=== PATIENT | female | born 1935 | race Hispanic/Latino ===

== ENCOUNTER 2017-11-20 15:00 | Inpatient (IN) | payer MEDICARE ==
[~2017-11-20] VITALS: Ht 158.8 cm; Wt 74.1 kg
[~2017-11-20 15:00] MED LIST: AMLO1CAP12 PO; LEVO50TA11 PO; LINA1TAB PO; PREM625 PO
[2017-11-20 15:42] VITALS: BP 150/79
[2017-11-20] MEDS ORDERED: ASPI-1181 PO (15:48)
[2017-11-20] MEDS ORDERED: HYDR12.530 PO (15:48)
[2017-11-20 15:49] LABS: BASOPHILS % (AUTO) 0.4 % (0.0-5.0); EOSINOPHILS % (AUTO) 2.1 % (0.0-8.0); HEMATOCRIT 41.2 % (36-48); LYMPHOCYTES % (AUTO) 27.6 % (21.0-51.0); MEAN CORPUSCULAR HEMOGLOBIN 30.7 pg (27.0-33.0); MEAN CORPUSCULAR HGB CONC 34.6 g/dL (32.0-36.0); MEAN CORPUSCULAR VOLUME 88.6 fL (79-99); NEUTROPHILS % (AUTO) 62.9 % (40.0-77.0); PLATELET COUNT (AUTO) 196 K/uL (130-400); RED BLOOD CELL COUNT(AUTO) 4.65 MIL/uL (4.00-5.50); RED CELL DISTRIBUTION WIDTH 14.3 % (11.0-15.5); WHITE BLOOD COUNT (AUTO) 8.3 K/uL (4.8-10.8)
[2017-11-20 15:49] LABS: APPEARANCE,URINE Clear (CLEAR); BILIRUBIN,URINE Negative (NEGATIVE); COLOR,URINE Yellow (YELLOW); GLUCOSE, URINE (UA) Negative (NEGATIVE); KETONES,URINE Negative (NEGATIVE); LEUKOCYTE ESTERASE ,URINE Negative (NEGATIVE); NITRATE,URINE Negative (NEGATIVE); OCCULT BLOOD,URINE Negative (NEGATIVE); PROTEIN,URINE Negative (NEGATIVE); UROBILINOGEN,URINE 0.2 mg/dL (0.2-1.0)
[2017-11-20] MEDS ORDERED: ATOR20TA65 PO (15:49)
[2017-11-20] MEDS ORDERED: GLIM1TAB2 PO (15:49)
[2017-11-20 16:07] LABS: INR 0.95 (0.85-1.15); PARTIAL THROMBOPLASTIN TIME 24.9 SEC (26.3-35.5)
[2017-11-20 16:08] LABS: CREATININE 1.2 mg/dL (0.5-1.5); POTASSIUM 4.2 mmol/L (3.5-5.1)
[2017-11-21] VITALS (21 sets, daily range): BP systolic 104–159; BP diastolic 52–79
[2017-11-21] MEDS ORDERED: SODIUM CHLORIDE 0.9% 1000ML 1,000 ML IV ONE (08:10)
[2017-11-21] MEDS ORDERED: CEFAZOLIN SODIUM 1 GM VIAL ONE (08:10)
[2017-11-21] MEDS ORDERED: TRANEXAMIC ACID 1000MG/10ML IV ONE (08:24)
[2017-11-21] MEDS ORDERED: CLINDAMYCIN PHOSPHATE 150 MG/ML 6ML VIAL ONE ×2 (08:24→09:27)
[2017-11-21] MEDS ORDERED: KETOROLAC TROMETHAMINE 15MG/ML ONE (08:26)
[2017-11-21] MEDS ORDERED: ACETAMINOPHEN EXTRA STRENGTH 500 MG TABLET ONE ×2 (08:26→20:34)
[2017-11-21] MEDS ORDERED: CELECOXIB 200 MG CAP ONE (08:26)
[2017-11-21] MEDS ORDERED: OXYCODONE HCL 10 MG TAB.SR.12H PO ONE (08:27)
[2017-11-21] MEDS: CLINDAMYCIN 900 MG/D5% WATER 50 ML IV SCH ×2 (08:30→11:40)
[2017-11-21] MEDS ORDERED: BUPIVACAINE/EPI/PF 0.25% 30ML VIAL IJ ONE (09:27)
[2017-11-21] MEDS ORDERED: DEXAMETHASONE SOD PHOSPHATE 10MG/ML 1ML VIAL ONE (11:09)
[2017-11-21] MEDS ORDERED: GLYCOPYRROLATE 0.2 MG/ML 5 ML VIAL ONE (11:09)
[2017-11-21] MEDS ORDERED: ONDANSETRON HCL 4 MG/2 ML VIAL ONE (11:09)
[2017-11-21] MEDS ORDERED: LIDOCAINE PF 2% 5ML ABBOJECT ONE (11:09)
[2017-11-21] MEDS ORDERED: PROPOFOL 10 MG/ML 20ML VIAL IV ONE (11:10)
[2017-11-21] MEDS ORDERED: MIDAZOLAM HCL 1 MG/ML 2ML VIAL ONE (11:10)
[2017-11-21] MEDS ORDERED: FENTANYL CITRATE PF 50 MCG/1 ML 2ML VIAL ONE ×2 (11:10→11:53)
[2017-11-21] MEDS ORDERED: EPHEDRINE SULFATE 50 MG/ML AMPULE ONE (11:40)
[2017-11-21] MEDS: SODIUM CHLORIDE 0.9% 1000ML 1,000 ML IV SCH ×2 (13:27→23:30)
[2017-11-21] MEDS ORDERED: FERROUS FUMARATE 324 MG TABLET PO PRN (13:30)
[2017-11-21] MEDS ORDERED: CALCIUM CARBONATE 500 MG TABLET PO PRN (13:30)
[2017-11-21] MEDS ORDERED: POTASSIUM CHLORIDE 20MEQ/100ML 100 ML IV PRN (13:30)
[2017-11-21] MEDS ORDERED: TRAMADOL HCL 50 MG TABLET PO PRN (13:30)
[2017-11-21] MEDS ORDERED: DiphenhydrAMINE HCL 50 MG/ML VIAL IVP PRN (13:30)
[2017-11-21] MEDS ORDERED: POTASSIUM CHLORIDE 20 MEQ ERTAB PO PRN (13:30)
[2017-11-21] MEDS ORDERED: OXYCODONE HCL 5 MG TAB PO PRN (13:30)
[2017-11-21] MEDS ORDERED: LIDOCAINE HCL-MPF 1% 2ML VIAL IVP PRN (13:30)
[2017-11-21] MEDS ORDERED: POTASSIUM CHLORIDE 10% ELIXIR 20 MEQ/15 ML UDCUP PO PRN (13:30)
[2017-11-21] MEDS ORDERED: ONDANSETRON HCL 4 MG/2 ML VIAL IVP PRN (13:30)
[2017-11-21] MEDS ORDERED: TEMAZEPAM 15 MG CAPSULE PO PRN (13:30)
[2017-11-21] MEDS ORDERED: ACETAMINOPHEN 325 MG TAB PO PRN (13:30)
[2017-11-21] MEDS ORDERED: MEPERIDINE-PF 25 MG/ML SYG ONE (14:19)
[2017-11-21] MEDS ORDERED: MORPHINE SULFATE 4 MG/1ML SYG ONE (14:30)
[2017-11-21] MEDS ORDERED: ONDANSETRON HCL MDV 20ML 2 MG/ML VIAL ONE (15:35)
[2017-11-21] MEDS: KETOROLAC TROMETHAMINE 15MG/ML IV PRN (15:36)
[2017-11-21] MEDS: INSULIN HUMULIN R 100 UNIT/ML 3ML SQ SCH ×2 (17:36→21:50)
[2017-11-21] MEDS ORDERED: CLINDAMYCIN 900 MG/D5% WATER 50 ML IVPB SCH (18:30)
[2017-11-21] MEDS: CLINDAMYCIN 900 MG/D5% WATER 50 ML IVPB SCH (20:27)
[2017-11-21] MEDS: ASPIRIN 325 MG TABLET PO SCH (20:27)
[2017-11-21] MEDS: CELECOXIB 200 MG CAP PO SCH (20:28)
[2017-11-21] MEDS: PREGABALIN 25 MG CAP PO SCH (20:29)
[2017-11-21] MEDS: ATORVASTATIN CALCIUM 20 MG TABLET PO SCH (20:30)
[2017-11-21] MEDS: HYDROCHLOROTHIAZIDE 25 MG TABLET PO SCH (20:30)
[2017-11-21] MEDS: FAMOTIDINE 20MG TAB 20 MG TAB PO SCH (20:30)
[2017-11-21] MEDS: ACETAMINOPHEN 325 MG TAB PO SCH (20:39)
[2017-11-22] VITALS: BP 129/70
[2017-11-22 04:00] VITALS: BP 129/61
[2017-11-22] MEDS: CLINDAMYCIN 900 MG/D5% WATER 50 ML IVPB SCH (04:11)
[2017-11-22] MEDS ORDERED: ACETAMINOPHEN EXTRA STRENGTH 500 MG TABLET ONE (04:11)
[2017-11-22] MEDS: ACETAMINOPHEN 325 MG TAB PO SCH (04:44)
[2017-11-22 05:55] LABS: HEMATOCRIT 33.9 % (36-48); MEAN CORPUSCULAR HEMOGLOBIN 30.8 pg (27.0-33.0); MEAN CORPUSCULAR HGB CONC 35.4 g/dL (32.0-36.0); MEAN CORPUSCULAR VOLUME 86.9 fL (79-99); PLATELET COUNT (AUTO) 157 K/uL (130-400); RED CELL DISTRIBUTION WIDTH 13.8 % (11.0-15.5); WHITE BLOOD COUNT (AUTO) 11.5 K/uL (4.8-10.8)
[2017-11-22] MEDS: INSULIN HUMULIN R 100 UNIT/ML 3ML SQ SCH ×4 (06:03→20:58)
[2017-11-22] MEDS ORDERED: LEVOTHYROXINE 50 MCG TABLET ONE (06:04)
[2017-11-22] MEDS: LEVOTHYROXINE 50 MCG TABLET PO SCH (06:06)
[2017-11-22 06:17] LABS: CREATININE 0.9 mg/dL (0.5-1.5); POTASSIUM 3.9 mmol/L (3.5-5.1)
[2017-11-22] MEDS: JENTADUETO PO SCH ×2 (08:00→17:00)
[2017-11-22 08:03] VITALS: BP 131/66
[2017-11-22] MEDS: ASPIRIN 325 MG TABLET PO SCH ×2 (08:15→19:42)
[2017-11-22] MEDS: OXYCODONE HCL 5 MG TAB PO PRN ×2 (08:15→11:31)
[2017-11-22] MEDS: GLIMEPIRIDE 2 MG TABLET PO SCH (08:15)
[2017-11-22] MEDS: CELECOXIB 200 MG CAP PO SCH ×2 (08:15→19:43)
[2017-11-22] MEDS: POLYETHYLENE GLYCOL 3350 17 GM POWD.PACK PO SCH (08:16)
[2017-11-22] MEDS: SODIUM CHLORIDE 0.9% 1000ML 1,000 ML IV SCH (09:27)
[2017-11-22] MEDS: AMLODIPINE-BENAZEPRIL 5-20 MG PO SCH (11:31)
[2017-11-22] MEDS: PREGABALIN 25 MG CAP PO SCH ×2 (11:32→19:52)
[2017-11-22 11:39] VITALS: BP 127/66
[2017-11-22] MEDS: KETOROLAC TROMETHAMINE 15MG/ML IV PRN (13:24)
[2017-11-22] MEDS: ACETAMINOPHEN EXTRA STRENGTH 500 MG TABLET PO SCH ×2 (15:57→21:25)
[2017-11-22 16:16] VITALS: BP 122/64
[2017-11-22] MEDS: HYDROCHLOROTHIAZIDE 25 MG TABLET PO SCH (19:42)
[2017-11-22] MEDS: ATORVASTATIN CALCIUM 20 MG TABLET PO SCH (19:43)
[2017-11-22] MEDS: FAMOTIDINE 20MG TAB 20 MG TAB PO SCH (19:47)
[2017-11-22 20:00] VITALS: BP 146/74
[2017-11-23] VITALS (7 sets, daily range): BP systolic 130–148; BP diastolic 64–74
[2017-11-23] MEDS: LEVOTHYROXINE 50 MCG TABLET PO SCH (05:29)
[2017-11-23] MEDS: ACETAMINOPHEN EXTRA STRENGTH 500 MG TABLET PO SCH ×3 (05:29→22:14)
[2017-11-23] MEDS: INSULIN HUMULIN R 100 UNIT/ML 3ML SQ SCH ×3 (05:30→21:00)
[2017-11-23] MEDS: AMLODIPINE-BENAZEPRIL 5-20 MG PO SCH (08:58)
[2017-11-23] MEDS: POLYETHYLENE GLYCOL 3350 17 GM POWD.PACK PO SCH (08:58)
[2017-11-23] MEDS: ASPIRIN 325 MG TABLET PO SCH ×2 (08:58→20:13)
[2017-11-23] MEDS: PREGABALIN 25 MG CAP PO SCH ×2 (08:58→20:13)
[2017-11-23] MEDS: GLIMEPIRIDE 2 MG TABLET PO SCH (08:59)
[2017-11-23] MEDS: CELECOXIB 200 MG CAP PO SCH ×2 (08:59→20:13)
[2017-11-23] MEDS ORDERED: ESTROGENS,CONJUGATED 0.625 MG TAB PO SCH (09:00)
[2017-11-23] MEDS: JENTADUETO PO SCH ×2 (09:16→17:00)
[2017-11-23] MEDS ORDERED: ASPI-1012 PO (15:58)
[2017-11-23] MEDS ORDERED: HYDR-309 PO (15:58)
[2017-11-23] MEDS: ATORVASTATIN CALCIUM 20 MG TABLET PO SCH (20:13)
[2017-11-23] MEDS: FAMOTIDINE 20MG TAB 20 MG TAB PO SCH (20:13)
[2017-11-23] MEDS: HYDROCHLOROTHIAZIDE 25 MG TABLET PO SCH (21:24)
[2017-11-24 04:33] VITALS: BP 129/64
[2017-11-24] MEDS: LEVOTHYROXINE 50 MCG TABLET PO SCH ×2 (05:25→08:39)
[2017-11-24] MEDS: ACETAMINOPHEN EXTRA STRENGTH 500 MG TABLET PO SCH (05:27)
[2017-11-24] MEDS: INSULIN HUMULIN R 100 UNIT/ML 3ML SQ SCH (06:03)
[2017-11-24 07:42] VITALS: BP 117/73
[2017-11-24] MEDS: CELECOXIB 200 MG CAP PO SCH (08:38)
[2017-11-24] MEDS: POLYETHYLENE GLYCOL 3350 17 GM POWD.PACK PO SCH (08:38)
[2017-11-24] MEDS: AMLODIPINE-BENAZEPRIL 5-20 MG PO SCH (08:38)
[2017-11-24] MEDS: ASPIRIN 325 MG TABLET PO SCH (08:38)
[2017-11-24] MEDS: PREGABALIN 25 MG CAP PO SCH (08:38)
[2017-11-24] MEDS: JENTADUETO PO SCH (08:39)
[2017-11-24] MEDS: GLIMEPIRIDE 2 MG TABLET PO SCH (08:39)
[2017-11-24 11:19] VITALS: BP 166/76
[2017-11-24] MEDS ORDERED: BISACODYL 10 MG SUPP.RECT RC PRN (13:30)
== END 2017-11-24 11:27 | DRG 470 ==
LOC: DAHIP 11-21 07:22 → EDSTATUS 11-21 15:00 → 4AH 11-21 15:01
PROVIDERS: ADMIT Orthopaedic Surgery; ATTEND Orthopaedic Surgery
PROC: 0SRD0J9 Replacement of Left Knee Joint with Synthetic Substitute, Cemented, Open Approach (ICD-10-PCS; principal; 2017-11-21 11:54)
DX: M17.12 Unilateral primary osteoarthritis, left knee (principal); E11.9 Type 2 diabetes mellitus without complications; I10 Essential (primary) hypertension; E78.00 Pure hypercholesterolemia, unspecified; G89.29 Other chronic pain; M19.90 Unspecified osteoarthritis, unspecified site; Z90.710 Acquired absence of both cervix and uterus; Z98.49 Cataract extraction status, unspecified eye; Z88.0 Allergy status to penicillin; Z88.8 Allergy status to other drugs, medicaments and biological substances; Z91.041 Radiographic dye allergy status; Z83.3 Family history of diabetes mellitus
CPT/HCPCS: 36415; 80048; 81003; 82948; 85025; 85027; 85610; 85730; 88305; 88311; 96374; 97039; A4218; J0690; J1100; J1815; J1885; J2001; J2175; J2250; J2270; J2405; J2704; J3010; J3490; J7030

== ENCOUNTER 2022-04-18 18:11 | Observation (INO) | payer MEDICARE ==
[~2022-04-18] VITALS: Ht 157.5 cm; Wt 73.9 kg
[~2022-04-18 18:11] MED LIST changes: +AMLO-104 PO; -AMLO1CAP12 PO; +ASPI-1012 PO; +ATOR20TA65 PO; +GLIM1TAB18 PO; +HYDR-4457 PO; +HYDR12.530 PO
[2022-04-18 18:58] LABS: APPEARANCE,URINE CLEAR (CLEAR); BILIRUBIN,URINE NEGATIVE (NEGATIVE); COLOR,URINE COLORLESS (YELLOW); GLUCOSE, URINE (UA) NEGATIVE (NEGATIVE); KETONES,URINE 5 mg/dL (NEGATIVE); LEUKOCYTE ESTERASE ,URINE 250 Leu/uL (NEGATIVE); NITRATE,URINE NEGATIVE (NEGATIVE); OCCULT BLOOD,URINE SMALL (NEGATIVE); PH,URINE 5.5 (5.0-8.0); PROTEIN,URINE NEGATIVE (NEGATIVE); UROBILINOGEN,URINE 0.2 mg/dL (0.2-1.0)
[2022-04-18 19:04] LABS: BACTERIA,URINE RARE /HPF (None Seen); WBC,URINE 26-50 /HPF (0-1)
[2022-04-18 19:20] LABS: BASOPHILS % (AUTO) 0.2 % (0.0-5.0); EOSINOPHILS % (AUTO) 0.4 % (0.0-8.0); HEMATOCRIT 38.1 % (36-48); LYMPHOCYTES % (AUTO) 6.1 % (21.0-51.0); MEAN CORPUSCULAR HGB CONC 34.4 g/dL (32.0-36.0); MEAN CORPUSCULAR VOLUME 87.4 fL (79-99); MONOCYTES % (AUTO) 9.4 % (3.0-13.0); NEUTROPHILS % (AUTO) 83.2 % (40.0-77.0); PLATELET COUNT (AUTO) 175 K/uL (130-400); RED BLOOD CELL COUNT(AUTO) 4.36 MIL/uL (4.00-5.50); RED CELL DISTRIBUTION WIDTH 13.2 % (11.0-15.5); WHITE BLOOD COUNT (AUTO) 12.1 K/uL (4.8-10.8)
[2022-04-18 19:26] LABS: ALBUMIN 3.3 g/dL (3.5-5.0); TOTAL PROTEIN, SERUM 7.3 g/dL (6.0-8.3)
[2022-04-18] MEDS ORDERED: 0.9%NACL 1000ML 2,500 ML IV ONE (20:00)
[2022-04-18] MEDS ORDERED: CEFTRIAXONE 1G VIAL IVP ONE (20:00)
[2022-04-18] MEDS ORDERED: ACETAMINOPHEN 325 MG TAB PO ONE (21:30)
[2022-04-18] MEDS ORDERED: ACETAMINOPHEN 325 MG TAB ONE (21:32)
[2022-04-18] MEDS ORDERED: TEMAZEPAM 15 MG CAPSULE PO PRN (22:30)
[2022-04-18] MEDS ORDERED: DOCUSATE SODIUM 100 MG CAP PO PRN (22:30)
[2022-04-18] MEDS ORDERED: LABETALOL 20MG SYG IV PRN (22:30)
[2022-04-18] MEDS ORDERED: HYDRALAZINE 20MG/ML VIAL IV PRN (22:30)
[2022-04-18] MEDS ORDERED: ONDANSETRON 4MG INJ IVP PRN (22:30)
[2022-04-18] MEDS ORDERED: LACTULOSE 20 GM/30 ML UDCUP PO PRN (22:30)
[2022-04-18] MEDS ORDERED: CLONIDINE HCL 0.1 MG TABLET PO PRN (22:30)
[2022-04-18] MEDS ORDERED: ACETAMINOPHEN 650 MG SUPPOSITORY RC PRN (22:30)
[2022-04-18] MEDS ORDERED: ACETAMINOPHEN 325 MG TAB PO PRN (22:30)
[2022-04-18] MEDS ORDERED: FLUTICASONE IH (22:44)
[2022-04-18] MEDS ORDERED: SITA1TAB2 PO (22:46)
[2022-04-18] MEDS ORDERED: CIPR250S5 PO (22:51)
[2022-04-18] MEDS ORDERED: AEC81 PO (22:51)
[2022-04-18] MEDS ORDERED: REPA0.5T6 PO (22:51)
[2022-04-18] MEDS ORDERED: CARV12.511 PO (22:53)
[2022-04-19] MEDS: 0.9%NACL 1000ML 1,000 ML IV SCH ×2 (01:19→12:40)
[2022-04-19] MEDS ORDERED: KCL 20 MEQ ERTAB PO PRN (05:00)
[2022-04-19] MEDS ORDERED: POTASSIUM CHLORIDE 10% ELIXIR 20 MEQ/15 ML UDCUP PO PRN (05:00)
[2022-04-19] MEDS ORDERED: MAGNESIUM 2GM PREMIX 50ML 50 ML IV PRN (05:00)
[2022-04-19] MEDS ORDERED: POTASSIUM CHLORIDE 20MEQ/100ML 100 ML IV PRN (05:00)
[2022-04-19 06:00] LABS: BASOPHILS % (AUTO) 0.3 % (0.0-5.0); HEMATOCRIT 34.5 % (36-48); LYMPHOCYTES % (AUTO) 25.8 % (21.0-51.0); MEAN CORPUSCULAR HEMOGLOBIN 30.4 pg (27.0-33.0); MEAN CORPUSCULAR HGB CONC 34.5 g/dL (32.0-36.0); MEAN CORPUSCULAR VOLUME 88.2 fL (79-99); MONOCYTES % (AUTO) 11.3 % (3.0-13.0); NEUTROPHILS % (AUTO) 60.1 % (40.0-77.0); PLATELET COUNT (AUTO) 158 K/uL (130-400); RED BLOOD CELL COUNT(AUTO) 3.91 MIL/uL (4.00-5.50); RED CELL DISTRIBUTION WIDTH 13.4 % (11.0-15.5)
[2022-04-19 06:34] LABS: CREATININE 0.8 mg/dL (0.5-1.5); MAGNESIUM 1.7 mg/dL (1.80-2.40); PHOSPHORUS 3.2 mg/dL (2.5-4.9); POTASSIUM 4.1 mmol/L (3.5-5.1); THYROID STIMULATING HORMONE 1.79 uIU/mL (0.36-3.74)
[2022-04-19] MEDS: INSULIN HUMULIN R 100 UNIT/ML 3ML SQ SCH ×4 (07:30→20:15)
[2022-04-19] MEDS ORDERED: CEFTRIAXONE 1G VIAL IVP SCH ×2 (09:00→12:00)
[2022-04-19] MEDS ORDERED: PREM625 PO (15:13)
[2022-04-19] MEDS ORDERED: FLUT1AER IH (15:13)
[2022-04-19 16:00] VITALS: BP 137/78
[2022-04-19 19:40] VITALS: BP 147/66
[2022-04-19] MEDS: CEFTRIAXONE 1G VIAL IVP SCH (20:38)
[2022-04-19 23:33] VITALS: BP 125/72
[2022-04-20 03:37] VITALS: BP 129/67
[2022-04-20] MEDS: 0.9%NACL 1000ML 1,000 ML IV SCH (05:03)
[2022-04-20] MEDS: INSULIN HUMULIN R 100 UNIT/ML 3ML SQ SCH ×2 (06:08→12:22)
[2022-04-20 07:58] VITALS: BP 144/69
[2022-04-20] MEDS: CEFTRIAXONE 1G VIAL IVP SCH (08:29)
[2022-04-20 11:49] VITALS: BP 146/62
[2022-04-20] MEDS ORDERED: LEVO250T75 PO (12:27)
== END 2022-04-20 14:40 | disposition home or self-care (01) ==
LOC: EDH 18:11 → EDHIP 20:30 → INTOOBSV 20:30 → 3CH 04-19 14:49
PROVIDERS: ADMIT Internal Medicine Pulmonary Disease; ATTEND Internal Medicine Pulmonary Disease
DX: A41.9 Sepsis, unspecified organism (principal); Z20.822 Contact with and (suspected) exposure to COVID-19; N39.0 Urinary tract infection, site not specified; D72.829 Elevated white blood cell count, unspecified; R42 Dizziness and giddiness; E11.65 Type 2 diabetes mellitus with hyperglycemia; N17.9 Acute kidney failure, unspecified; I12.9 Hypertensive chronic kidney disease with stage 1 through stage 4 chronic kidney disease, or unspecified chronic kidney disease; N18.31 Chronic kidney disease, stage 3a; E86.0 Dehydration; E11.22 Type 2 diabetes mellitus with diabetic chronic kidney disease; E78.00 Pure hypercholesterolemia, unspecified; E05.90 Thyrotoxicosis, unspecified without thyrotoxic crisis or storm; E03.9 Hypothyroidism, unspecified; J45.909 Unspecified asthma, uncomplicated; M19.90 Unspecified osteoarthritis, unspecified site; Z96.653 Presence of artificial knee joint, bilateral; Z98.49 Cataract extraction status, unspecified eye; Z79.899 Other long term (current) drug therapy; Z98.890 Other specified postprocedural states; Z90.49 Acquired absence of other specified parts of digestive tract; Z90.710 Acquired absence of both cervix and uterus; Z98.891 History of uterine scar from previous surgery; Z79.82 Long term (current) use of aspirin
CPT/HCPCS: 96375; 99285; 84484 ×2; 80053; 85025 ×2; 87040 ×2; 87088; 87804 ×2; 83605; 81001; 36415 ×2; 87635; 71045; 93005; 96376 ×2; 96361 ×2; 96365; 96366; 83036; 84443; 83735; 84100; 80048; 82948 ×4; G0378 ×41; J7030 ×2; J0696 ×5; J1815 ×2; J3475

== ENCOUNTER 2023-02-23 08:49 | Emergency (ER) | payer MEDICARE ==
[~2023-02-23] VITALS: Ht 157.5 cm; Wt 71.7 kg
[~2023-02-23 08:49] MED LIST changes: +AEC81 PO; -ASPI-1012 PO; +CARV12.511 PO; +FLUT1AER IH; -GLIM1TAB18 PO; -HYDR-4457 PO; -HYDR12.530 PO; +LEVO250T75 PO; -LINA1TAB PO; +REPA0.5T6 PO; +SITA1TAB2 PO
[2023-02-23 09:16] LABS: APPEARANCE,URINE TURBID (CLEAR); BILIRUBIN,URINE NEGATIVE (NEGATIVE); COLOR,URINE YELLOW (YELLOW); GLUCOSE, URINE (UA) NEGATIVE (NEGATIVE); KETONES,URINE NEGATIVE (NEGATIVE); LEUKOCYTE ESTERASE ,URINE 500 Leu/uL (NEGATIVE); NITRATE,URINE NEGATIVE (NEGATIVE); OCCULT BLOOD,URINE MODERATE (NEGATIVE); PROTEIN,URINE 70 mg/dL (NEGATIVE); UROBILINOGEN,URINE 0.2 mg/dL (0.2-1.0)
[2023-02-23 09:36] LABS: BACTERIA,URINE FEW /HPF (None Seen); RBC,URINE 51-100 /HPF (0-1); SQUAMOUS EPITHELIAL CELL,UR MANY /HPF (0-2); WBC,URINE TNTC /HPF (0-1)
[2023-02-23 10:15] LABS: BASOPHILS % (AUTO) 0.5 % (0.0-5.0); EOSINOPHILS % (AUTO) 1.4 % (0.0-8.0); HEMATOCRIT 39.6 % (36-48); LYMPHOCYTES % (AUTO) 17.8 % (21.0-51.0); MEAN CORPUSCULAR HEMOGLOBIN 30.2 pg (27.0-33.0); MEAN CORPUSCULAR HGB CONC 33.6 g/dL (32.0-36.0); MEAN CORPUSCULAR VOLUME 89.8 fL (79-99); MONOCYTES % (AUTO) 8.7 % (3.0-13.0); NEUTROPHILS % (AUTO) 71.1 % (40.0-77.0); PLATELET COUNT (AUTO) 182 K/uL (130-400); RED BLOOD CELL COUNT(AUTO) 4.41 MIL/uL (4.00-5.50); RED CELL DISTRIBUTION WIDTH 13.2 % (11.0-15.5); WHITE BLOOD COUNT (AUTO) 8.8 K/uL (4.8-10.8)
[2023-02-23 10:33] LABS: ALBUMIN 3.5 g/dL (3.5-5.0); TOTAL PROTEIN, SERUM 7.5 g/dL (6.0-8.3)
[2023-02-23] MEDS ORDERED: SULF1TAB42 PO (11:54)
[2023-02-23] MEDS ORDERED: PHEN-847 PO (11:54)
[2023-02-23 12:40] VITALS: BP 138/73; PULSE 80; RESP 16; O2SAT 99
== END 2023-02-23 12:44 | disposition home or self-care (01) ==
LOC: EDH 08:49
DX: N39.0 Urinary tract infection, site not specified (principal); E11.9 Type 2 diabetes mellitus without complications; E78.00 Pure hypercholesterolemia, unspecified; I10 Essential (primary) hypertension; Z79.51 Long term (current) use of inhaled steroids; Z79.82 Long term (current) use of aspirin; Z79.84 Long term (current) use of oral hypoglycemic drugs; Z79.899 Other long term (current) drug therapy; Z88.0 Allergy status to penicillin; Z90.49 Acquired absence of other specified parts of digestive tract
CPT/HCPCS: 36415; 80053; 81001; 85025; 87077; 87088; 87186

== ENCOUNTER 2023-04-27 05:42 | Day surgery (SDC) | payer MEDICARE ==
[2023-04-25 12:17] LABS: BASOPHILS # (AUTO) 0.03 K/uL (0.00-0.20); BASOPHILS % (AUTO) 0.4 % (0.0-5.0); EOSINOPHILS # (AUTO) 0.11 K/uL (0.00-0.70); EOSINOPHILS % (AUTO) 1.5 % (0.0-8.0); HEMATOCRIT 42.9 % (36-48); IMMATURE GRANULOCYTE ABSOLUTE 0.03 K/uL (0-1); LYMPHOCYTES % (AUTO) 27.6 % (21.0-51.0); MEAN CORPUSCULAR HEMOGLOBIN 30.1 pg (27.0-33.0); MEAN CORPUSCULAR HGB CONC 33.6 g/dL (32.0-36.0); MEAN CORPUSCULAR VOLUME 89.6 fL (79-99); MONOCYTES # (AUTO) 0.7 K/uL (0.1-1.0); MONOCYTES % (AUTO) 9.5 % (3.0-13.0); NEUTROPHILS # (AUTO) 4.4 K/uL (1.8-7.7); NEUTROPHILS % (AUTO) 60.6 % (40.0-77.0); PLATELET COUNT (AUTO) 210 K/uL (130-400); RED BLOOD CELL COUNT(AUTO) 4.79 MIL/uL (4.00-5.50); RED CELL DISTRIBUTION WIDTH 13.2 % (11.0-15.5); WHITE BLOOD COUNT (AUTO) 7.2 K/uL (4.8-10.8)
[2023-04-25 12:28] LABS: POTASSIUM 4.7 mmol/L (3.5-5.1)
[2023-04-25 12:46] VITALS: BP 163/67; PULSE 60; RESP 20
[2023-04-25 12:47] LABS: INR < 0.93 (0.85-1.15); PROTHROMBIN TIME 10.8 SEC (9.6-11.6)
[2023-04-25 12:48] LABS: PARTIAL THROMBOPLASTIN TIME 26.9 SEC (26.3-35.5)
[2023-04-27] VITALS (15 sets, daily range): BP systolic 98–136; BP diastolic 45–72; PULSE 57–78; RESP 11–16
[~2023-04-27] VITALS: Ht 160 cm; Wt 70.5 kg
[~2023-04-27 05:42] MED LIST changes: -LEVO250T75 PO; +METF-444 PO; +SITA100T12 PO; -SITA1TAB2 PO
[2023-04-27] MEDS ORDERED: 0.9%NACL 1000ML 1,000 ML IV ONE (06:32)
[2023-04-27] MEDS ORDERED: CEFTRIAXONE 1G VIAL ONE (06:33)
[2023-04-27] MEDS ORDERED: LIDOCAINE PF 100MG/5ML (2%) SYRINGE 5ML ONE (07:29)
[2023-04-27] MEDS ORDERED: DEXAMETHASONE SOD PHOSPHATE 10MG/ML 1ML VIAL ONE (07:29)
[2023-04-27] MEDS ORDERED: SUCCINYLCHOLINE 200MG/10ML SYR ONE (07:29)
[2023-04-27] MEDS ORDERED: MIDAZOLAM HCL 1 MG/ML 2ML VIAL ONE (07:29)
[2023-04-27] MEDS ORDERED: FENTANYL CITRATE PF 50 MCG/1 ML 2ML VIAL ONE (07:30)
[2023-04-27] MEDS ORDERED: ONDANSETRON 4MG INJ ONE (07:30)
[2023-04-27] MEDS ORDERED: GLYCOPYRROLATE 1 MG/5 ML SYRINGE ONE (07:30)
[2023-04-27] MEDS ORDERED: ROCURONIUM 10MG/1ML SYR 10 MG/ML ML ONE (07:30)
[2023-04-27] MEDS ORDERED: NEOSTIGMINE 5MG/5ML SYR IV ONE (07:30)
[2023-04-27] MEDS ORDERED: PROPOFOL 10 MG/ML 20ML VIAL IV ONE (07:30)
[2023-04-27] MEDS ORDERED: IOHEXOL-350 50ML VIAL IV ONE (08:04)
[2023-04-27] MEDS ORDERED: CEFTRIAXONE 1G VIAL IVPB ONE (08:26)
[2023-04-27] MEDS ORDERED: PHENAZOPYRIDINE HCL 200 MG TABLET ONE (09:32)
[2023-04-27] MEDS ORDERED: CEPH500B PO (10:10)
[2023-04-27] MEDS ORDERED: PHEN-775 PO (10:11)
[2023-04-27] MEDS ORDERED: ACET-2079 PO (10:12)
== END 2023-04-27 10:45 | disposition home or self-care (01) ==
LOC: DAH 05:42
PROVIDERS: ATTEND Urology
DX: N30.21 Other chronic cystitis with hematuria (principal); N81.10 Cystocele, unspecified; N94.89 Other specified conditions associated with female genital organs and menstrual cycle; I49.1 Atrial premature depolarization; I10 Essential (primary) hypertension; E11.9 Type 2 diabetes mellitus without complications; E03.9 Hypothyroidism, unspecified; Z79.899 Other long term (current) drug therapy; Z88.8 Allergy status to other drugs, medicaments and biological substances; Z88.0 Allergy status to penicillin; Z88.3 Allergy status to other anti-infective agents; Z98.890 Other specified postprocedural states; Z90.49 Acquired absence of other specified parts of digestive tract; Z90.710 Acquired absence of both cervix and uterus; Z98.49 Cataract extraction status, unspecified eye
CPT/HCPCS: 80048; 85025; 85610; 85730; 36415; 93005; 52204; 82948 ×2; 88305; 74420; A6260; J7120; A4344; A4354; C1758; J3010; J0330; J3490; J1100; J2710; J7030; J2001; J0696 ×2; J2250; J2704; J2405; Q9967; A4358; C1769; A4215; A4223; A4222; A4221; A4663; A4510; A4600